=== PATIENT | female | born 1950 | race Caucasian/White ===

== ENCOUNTER → 2024-03-06 | Outpatient (CLI) | payer MEDICARE ==
--- NOTE | 2024-03-06 11:32 | US ---
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 Left Kidney: wnl, no evidence for hydronephrosis, mass or renal calculus. Bladder: wnl Bilateral Jets seen: Yes Normal Post Void Residual: NA There is no evidence for hydronephrosis at this point in time. Cortical medullary differentiation is maintained bilaterally. No nephrolithiasis is seen. No masses are identified. The urinary bladder i s anechoic. Incidental hepatic simple cyst. IMPRESSION: No hydronephrosis or nephrolithiasis. [facility], , 03/06/2024 11:30 AM
== END | disposition home or self-care (01) ==
LOC: RADUSWWP 10:59
PROVIDERS: ATTEND Urology
DX: N39.46 Mixed incontinence (principal)
CPT/HCPCS: 76770